=== PATIENT | female | born 1970 | race Caucasian/White ===

== ENCOUNTER 2020-05-18 10:15 | Inpatient (IN) ==
[2020-05-18 11:00] LABS: ABS Basophils 0.1 10^3/ul (0-0.2); ABS Eosinophils 0.2 10^3/ul (0-0.6); ABS Lymphocytes 2.1 10^3/ul (1.0-4.8); ABS Monocytes 0.8 10^3/ul (0-0.8); ABS Neutrophils 9.7 10^3/ul (1.5-7.7); Eosinophil % 1.2 %; Hematocrit 38 % (35-47); Hemoglobin 12.5 g/dL (12.0-16.0); Lymphocyte % 16.5 %; Mean Corpuscular HGB Conc 33 g/dL (31-36); Mean Corpuscular Hemoglobin 27 pg (27-31); Mean Corpuscular Volume 81 fL (80-97); Mean Platelet Volume 7.4 fL (7.4-10.4); Platelet Count 373 10^3/uL (150-450); Red Blood Count 4.67 10^6 /uL (3.70-4.87); Red Cell Distribution Width 16 % (10-15); White Blood Count 12.8 10^3/uL (3.5-10.8)
[2020-05-18 11:22] LABS: Albumin/Globulin Ratio 1.1 (1-3); BUN/Creatinine Ratio 16.1 (8-20); Calcium 9.5 mg/dL (8.6-10.3); EGFR African American 122.3 (>60); EGFR Non-African American 101.1 (>60); Globulin 3.6 g/dL (2-4); Potassium 3.9 mmol/L (3.5-5.0); Total Bilirubin 0.3 mg/dL (0.2-1.0); Total Protein 7.6 g/dL (6.4-8.9)
[2020-05-18] MEDS ORDERED: Iodixanol (CONTRAST) 320 MG/ML 100 ML SDV IV ONE (11:44)
[2020-05-18] MEDS ORDERED: Piperacillin/Tazobac ADVAN 3.375 GM in NS 0.9% 100 ml BAG 100 ML IVPB ONE (12:12)
[2020-05-18] MEDS ORDERED: Piperacillin/Tazobac 3.375 GM BAG ONE (12:21)
[2020-05-18] MEDS ORDERED: Al Hydrox/Mg Hydrox/Simet LIQ 30 ML UDC PO PRN (13:19)
[2020-05-18] MEDS ORDERED: Ondansetron 4 mg VIAL 2 MG/ML 2 ml VIAL IV PRN (13:19)
[2020-05-18] MEDS ORDERED: Morphine ORAL.SOLN 10 mg 2 mg/ml UDC 5 ml (10 mg) PO PRN (13:48)
[2020-05-18 13:55] LABS: C Reactive Protein 19.57 mg/L (<8.01)
[2020-05-18] MEDS ORDERED: Heparin 5000 UNITS/ML 1 mL VIAL SUBCUT SCH (14:00)
[2020-05-18] MEDS ORDERED: Zosyn per Pharmacy NOTE FOLLOW UP SCH (14:00)
[2020-05-18] MEDS ORDERED: Dextrose 50% Syringe 50 ml 25 GM/50 ML SYRINGE IV PUSH PRN (14:17)
[2020-05-18] MEDS ORDERED: Nicotine GUM 4MG FRUIT FLAVOR PO PRN (16:06)
[2020-05-18] MEDS ORDERED: PEG 3000 GI LAVAGE 1 GALLON PO ONE (16:06)
[2020-05-18] MEDS: HYDROmorphone 1 MG/1 ML SYRINGE IV SLOW PU PRN ×2 (16:26→20:50)
[2020-05-18] MEDS: ZOSYN 3.375 GM Q8H per EXTENDED INFUSION IV SCH (16:27)
[2020-05-18] MEDS: Nicotine PATCH 21 MG/24 HR PATCH TRANSDERM SCH (16:42)
[2020-05-18 18:17] LABS: Erythrocyte Sed Rate 47 mm/Hr (0-29)
[2020-05-18] MEDS: Heparin 5000 UNITS/ML 1 mL VIAL SUBCUT SCH (20:59)
[2020-05-19] MEDS: ZOSYN 3.375 GM Q8H per EXTENDED INFUSION IV SCH ×3 (00:25→17:46)
[2020-05-19] MEDS: HYDROmorphone 1 MG/1 ML SYRINGE IV SLOW PU PRN ×3 (03:59→12:50)
[2020-05-19] MEDS: Heparin 5000 UNITS/ML 1 mL VIAL SUBCUT SCH ×2 (05:17→14:32)
[2020-05-19 06:50] LABS: ABS Basophils 0.1 10^3/ul (0-0.2); ABS Eosinophils 0.3 10^3/ul (0-0.6); ABS Lymphocytes 2.4 10^3/ul (1.0-4.8); ABS Monocytes 0.8 10^3/ul (0-0.8); ABS Neutrophils 9.4 10^3/ul (1.5-7.7); Eosinophil % 2.4 %; Hematocrit 36 % (35-47); Hemoglobin 12.2 g/dL (12.0-16.0); Lymphocyte % 18.5 %; Mean Corpuscular HGB Conc 34 g/dL (31-36); Mean Corpuscular Hemoglobin 27 pg (27-31); Mean Corpuscular Volume 80 fL (80-97); Mean Platelet Volume 7.5 fL (7.4-10.4); Nucleated Red Blood Cells % 0.1; Platelet Count 355 10^3/uL (150-450); Red Blood Count 4.53 10^6 /uL (3.70-4.87); Red Cell Distribution Width 16 % (10-15)
[2020-05-19 07:07] LABS: BUN/Creatinine Ratio 17.2 (8-20); Calcium 9.1 mg/dL (8.6-10.3); EGFR African American 117.9 (>60); EGFR Non-African American 97.4 (>60); Potassium 3.7 mmol/L (3.5-5.0)
[2020-05-19] MEDS: Nicotine PATCH 21 MG/24 HR PATCH TRANSDERM SCH (08:21)
[2020-05-19] MEDS ORDERED: diPHENhydraMINE 25 mg TAB PO PRN (10:22)
[2020-05-19] MEDS ORDERED: NS 0.9% 1000 ml BAG 1,000 ML IV SCH ×2 (12:30→18:30)
[2020-05-19 13:23] LABS: Chlamydia trachomatis NAA Negative (Negative); Neisseria gonorrhoeae (GC) NAA Negative (Negative)
[2020-05-19] MEDS ORDERED: Midazolam 10 mg/10 ml VIAL 1 mg/ml 10 ml VIAL (10 mg) ONE (15:19)
[2020-05-19] MEDS ORDERED: fentaNYL 100 mcg/2 ml 50 MCG/ML VIAL ONE ×2 (15:19→22:30)
[2020-05-19] MEDS ORDERED: Levalbuterol 0.63MG/3ML NEB UNIT OF USE INH ONE ×2 (18:30→18:33)
[2020-05-19] MEDS ORDERED: diPHENhydraMINE IV 50 MG/ML 1 ml VIAL (BENADRYL) SLOW PUSH ONE (18:40)
[2020-05-19] MEDS ORDERED: diPHENhydraMINE IV 50 MG/ML 1 ml VIAL (BENADRYL) ONE (18:43)
[2020-05-19] MEDS ORDERED: Midazolam 5 mg/5 ml VIAL 1 mg/ml 5 ml VIAL (5 mg) ONE (18:48)
[2020-05-19] MEDS ORDERED: fentaNYL 250 mcg/5 ml 50 MCG/ML 5 ml VIAL (250 MCG) ONE ×2 (18:48→20:53)
[2020-05-19] MEDS ORDERED: Acetaminophen IV 1 GM/100ML 100 ML ONE (18:49)
[2020-05-19] MEDS ORDERED: Succinylcholine 200 mg VIAL 20 mg/ml 10 ml VIAL (200 mg) ONE (18:49)
[2020-05-19] MEDS ORDERED: EPHEDrine (Pressors) 50 MG/ML VIAL ONE (18:49)
[2020-05-19] MEDS ORDERED: Metoclopramide 5 MG/ML VIAL (10 mg) ONE (18:49)
[2020-05-19] MEDS ORDERED: Phenylephrine 40 mcg/mL 10mL (400mcg) SYRINGE ONE ×2 (18:49→20:10)
[2020-05-19] MEDS ORDERED: Sodium Chloride 0.9% 10 ML ONE (18:49)
[2020-05-19] MEDS ORDERED: Propofol 10 MG/ML 20 ML BTL ONE (18:49)
[2020-05-19] MEDS ORDERED: Ondansetron 4 mg VIAL 2 MG/ML 2 ml VIAL ONE (18:49)
[2020-05-19] MEDS ORDERED: Lidocaine 2% PF 5 ML VIAL ONE (18:49)
[2020-05-19] MEDS ORDERED: Rocuronium 50 mg VIAL 10 mg/ml 5 ml VIAL (50 mg) ONE ×2 (18:55→20:35)
[2020-05-19] MEDS ORDERED: ceFOXitin 2 GM IVPREMIX 2 GM/50 ML BAG ONE (19:03)
[2020-05-19] MEDS ORDERED: Ondansetron 4 mg VIAL 2 MG/ML 2 ml VIAL IV PRN (20:01)
[2020-05-19] MEDS ORDERED: Naloxone 0.4 mg VIAL 0.4 mg/ml 1 ml VIAL IV PRN (20:01)
[2020-05-19] MEDS ORDERED: HYDROmorphone 1 MG/1 ML SYRINGE ONE (22:14)
[2020-05-19] MEDS: HYDROmorphone 1 MG/1 ML SYRINGE IV PRN ×5 (22:18→23:25)
[2020-05-19] MEDS: fentaNYL 100 mcg/2 ml 50 MCG/ML VIAL IV PRN ×2 (22:32→23:13)
[2020-05-20] MEDS: Morphine PCA ADULT 5 MG/ML 30 ML PCA SCH (00:32)
[2020-05-20] MEDS: Lactated Ringers 1000 ml BAG 1,000 ML IV SCH ×4 (00:34→20:45)
[2020-05-20] MEDS: Heparin 5000 UNITS/ML 1 mL VIAL SUBCUT SCH ×4 (01:32→22:51)
[2020-05-20] MEDS ORDERED: Lactated Ringers 1000 ml BAG 1,000 ML IV PRN (03:57)
[2020-05-20] MEDS: ceFOXitin 2 GM IVPREMIX 2 GM/50 ML BAG IVPB SCH ×3 (04:34→20:28)
[2020-05-20] MEDS: diPHENhydraMINE IV 50 MG/ML 1 ml VIAL (BENADRYL) IV PRN ×3 (04:35→18:08)
[2020-05-20 06:38] LABS: ABS Basophils 0.1 10^3/ul (0-0.2); ABS Eosinophils 0.1 10^3/ul (0-0.6); ABS Lymphocytes 1.6 10^3/ul (1.0-4.8); ABS Neutrophils 12.2 10^3/ul (1.5-7.7); Eosinophil % 0.9 %; Hematocrit 36 % (35-47); Hemoglobin 11.9 g/dL (12.0-16.0); Lymphocyte % 10.5 %; Mean Corpuscular HGB Conc 33 g/dL (31-36); Mean Corpuscular Hemoglobin 27 pg (27-31); Mean Corpuscular Volume 82 fL (80-97); Platelet Count 305 10^3/uL (150-450); Red Blood Count 4.42 10^6 /uL (3.70-4.87); Red Cell Distribution Width 16 % (10-15); White Blood Count 14.9 10^3/uL (3.5-10.8)
[2020-05-20 06:42] LABS: Calcium 8.4 mg/dL (8.6-10.3); Potassium 4.2 mmol/L (3.5-5.0)
[2020-05-20 06:48] LABS: BUN/Creatinine Ratio 17.5 (8-20); EGFR African American 120.1 (>60); EGFR Non-African American 99.2 (>60)
[2020-05-20] MEDS: Nicotine PATCH 21 MG/24 HR PATCH TRANSDERM SCH (09:45)
[2020-05-20] MEDS: Nystatin TOP POWDER 15 GM BTL TOPICAL SCH ×2 (16:44→22:21)
[2020-05-20 20:48] LABS: ABS Basophils 0.1 10^3/ul (0-0.2); ABS Eosinophils 0.3 10^3/ul (0-0.6); ABS Lymphocytes 2.7 10^3/ul (1.0-4.8); ABS Monocytes 1.3 10^3/ul (0-0.8); ABS Neutrophils 11.6 10^3/ul (1.5-7.7); Eosinophil % 1.7 %; Hematocrit 33 % (35-47); Hemoglobin 11.2 g/dL (12.0-16.0); Lymphocyte % 16.7 %; Mean Corpuscular HGB Conc 34 g/dL (31-36); Mean Corpuscular Hemoglobin 27 pg (27-31); Mean Corpuscular Volume 81 fL (80-97); Mean Platelet Volume 7.2 fL (7.4-10.4); Platelet Count 322 10^3/uL (150-450); Red Blood Count 4.09 10^6 /uL (3.70-4.87); Red Cell Distribution Width 16 % (10-15); White Blood Count 15.9 10^3/uL (3.5-10.8)
[2020-05-20] MEDS ORDERED: Lactated Ringers 1000 ml BAG 1,000 ML IV ONE (21:00)
[2020-05-20 21:10] LABS: BUN/Creatinine Ratio 12.6 (8-20); Calcium 8.5 mg/dL (8.6-10.3); EGFR African American 82.7 (>60); EGFR Non-African American 68.4 (>60); Potassium 3.8 mmol/L (3.5-5.0)
[2020-05-21] MEDS: ceFOXitin 2 GM IVPREMIX 2 GM/50 ML BAG IVPB SCH (03:35)
[2020-05-21 03:47] LABS: Urine Appearance Clear; Urine Bilirubin Negative (Negative); Urine Blood Negative (Negative); Urine Color Yellow; Urine Glucose Negative (Negative); Urine Ketones Negative (Negative); Urine Nitrite Negative (Negative); Urine Protein Negative (Negative); Urine Specific Gravity 1.009 (1.010-1.030); Urine Urobilinogen Negative (Negative)
[2020-05-21] MEDS: diPHENhydraMINE IV 50 MG/ML 1 ml VIAL (BENADRYL) IV PRN (03:59)
[2020-05-21] MEDS: Lactated Ringers 1000 ml BAG 1,000 ML IV SCH ×2 (04:06→10:42)
[2020-05-21] MEDS: Meropenem 1 GM PREMIX(*) 1 GM/50 ML BAG IV SCH ×2 (04:42→12:54)
[2020-05-21 05:06] LABS: ABS Basophils 0.1 10^3/ul (0-0.2); ABS Eosinophils 0.3 10^3/ul (0-0.6); ABS Lymphocytes 1.5 10^3/ul (1.0-4.8); ABS Monocytes 1.1 10^3/ul (0-0.8); ABS Neutrophils 10.6 10^3/ul (1.5-7.7); Eosinophil % 1.9 %; Hematocrit 29 % (35-47); Hemoglobin 9.6 g/dL (12.0-16.0); Lymphocyte % 11.4 %; Mean Corpuscular HGB Conc 33 g/dL (31-36); Mean Corpuscular Hemoglobin 27 pg (27-31); Mean Corpuscular Volume 81 fL (80-97); Mean Platelet Volume 7.8 fL (7.4-10.4); Platelet Count 255 10^3/uL (150-450); Red Blood Count 3.57 10^6 /uL (3.70-4.87); Red Cell Distribution Width 16 % (10-15); White Blood Count 13.5 10^3/uL (3.5-10.8)
[2020-05-21 05:19] LABS: BUN/Creatinine Ratio 12.5 (8-20); Calcium 8.1 mg/dL (8.6-10.3); EGFR African American 102.9 (>60); EGFR Non-African American 85.1 (>60); Potassium 3.8 mmol/L (3.5-5.0)
[2020-05-21] MEDS: Heparin 5000 UNITS/ML 1 mL VIAL SUBCUT SCH ×3 (05:51→21:12)
[2020-05-21] MEDS: Nicotine PATCH 21 MG/24 HR PATCH TRANSDERM SCH (09:42)
[2020-05-21] MEDS: Nystatin TOP POWDER 15 GM BTL TOPICAL SCH ×3 (09:43→21:11)
[2020-05-21] MEDS: Morphine PCA ADULT 5 MG/ML 30 ML PCA SCH (10:52)
[2020-05-21] MEDS ORDERED: Zosyn per Pharmacy NOTE FOLLOW UP SCH (16:00)
[2020-05-21] MEDS: NS 0.9% 1000 ml BAG 1,000 ML IV SCH (17:14)
[2020-05-21] MEDS ORDERED: Piperacillin/Tazobac ADVAN 3.375 GM in NS 0.9% 100 ml BAG 100 ML IVPB ONE (21:00)
[2020-05-22] MEDS: ZOSYN 3.375 GM Q8H per EXTENDED INFUSION IV SCH ×3 (02:23→18:14)
[2020-05-22 04:25] LABS: ABS Basophils 0.1 10^3/ul (0-0.2); ABS Eosinophils 0.3 10^3/ul (0-0.6); ABS Lymphocytes 1.8 10^3/ul (1.0-4.8); ABS Monocytes 0.9 10^3/ul (0-0.8); ABS Neutrophils 7.8 10^3/ul (1.5-7.7); Eosinophil % 2.9 %; Hematocrit 28 % (35-47); Hemoglobin 9.2 g/dL (12.0-16.0); Lymphocyte % 16.4 %; Mean Corpuscular HGB Conc 33 g/dL (31-36); Mean Corpuscular Hemoglobin 27 pg (27-31); Mean Corpuscular Volume 82 fL (80-97); Platelet Count 271 10^3/uL (150-450); Red Blood Count 3.37 10^6 /uL (3.70-4.87); Red Cell Distribution Width 15 % (10-15); White Blood Count 10.8 10^3/uL (3.5-10.8)
[2020-05-22 04:57] LABS: Urine Appearance Clear; Urine Bilirubin Negative (Negative); Urine Blood Negative (Negative); Urine Color Yellow; Urine Glucose Negative (Negative); Urine Ketones 2+ (Negative); Urine Nitrite Negative (Negative); Urine Protein Negative (Negative); Urine Specific Gravity 1.021 (1.010-1.030); Urine Urobilinogen Negative (Negative)
[2020-05-22 05:02] LABS: Albumin 2.9 g/dL (3.2-5.2); BUN/Creatinine Ratio 10.8 (8-20); C Reactive Protein 192.98 mg/L (<8.01); Calcium 8.3 mg/dL (8.6-10.3); EGFR African American 115.8 (>60); EGFR Non-African American 95.7 (>60); Globulin 2.8 g/dL (2-4); Magnesium 1.6 mg/dL (1.9-2.7); Phosphorus 2.5 mg/dL (2.5-5.0); Potassium 3.7 mmol/L (3.5-5.0); Total Bilirubin 0.4 mg/dL (0.2-1.0); Total Protein 5.7 g/dL (6.4-8.9)
[2020-05-22] MEDS: Heparin 5000 UNITS/ML 1 mL VIAL SUBCUT SCH ×3 (06:03→21:23)
[2020-05-22] MEDS ORDERED: Iodixanol (CONTRAST) 320 MG/ML 100 ML SDV IV ONE (09:12)
[2020-05-22] MEDS: NS 0.9% 1000 ml BAG 1,000 ML IV SCH (10:12)
[2020-05-22] MEDS: Nicotine PATCH 21 MG/24 HR PATCH TRANSDERM SCH (10:15)
[2020-05-22] MEDS: Nystatin TOP POWDER 15 GM BTL TOPICAL SCH ×3 (12:29→21:22)
[2020-05-22] MEDS ORDERED: Magnesium Sulfate 2 gm BAG 2 GM/50 ML BAG IVPB ONE (15:53)
[2020-05-22] MEDS: diPHENhydraMINE IV 50 MG/ML 1 ml VIAL (BENADRYL) IV PRN (18:19)
[2020-05-23] MEDS: ZOSYN 3.375 GM Q8H per EXTENDED INFUSION IV SCH ×3 (01:53→17:41)
[2020-05-23 04:47] LABS: ABS Eosinophils 0.4 10^3/ul (0-0.6); ABS Lymphocytes 1.1 10^3/ul (1.0-4.8); ABS Monocytes 0.8 10^3/ul (0-0.8); ABS Neutrophils 5.6 10^3/ul (1.5-7.7); Eosinophil % 4.8 %; Hematocrit 25 % (35-47); Hemoglobin 8.3 g/dL (12.0-16.0); Lymphocyte % 14.4 %; Mean Corpuscular HGB Conc 33 g/dL (31-36); Mean Corpuscular Hemoglobin 27 pg (27-31); Mean Corpuscular Volume 82 fL (80-97); Mean Platelet Volume 7.4 fL (7.4-10.4); Platelet Count 268 10^3/uL (150-450); Red Blood Count 3.08 10^6 /uL (3.70-4.87); Red Cell Distribution Width 16 % (10-15); White Blood Count 7.9 10^3/uL (3.5-10.8)
[2020-05-23 04:58] LABS: EGFR African American 156.8 (>60); EGFR Non-African American 129.6 (>60); Magnesium 1.8 mg/dL (1.9-2.7); Potassium 3.7 mmol/L (3.5-5.0)
[2020-05-23] MEDS: Heparin 5000 UNITS/ML 1 mL VIAL SUBCUT SCH ×3 (05:28→22:25)
[2020-05-23] MEDS ORDERED: Magnesium Sulfate IV 1GM/100ML 1 GM/100 ML BAG IV ONE (09:00)
[2020-05-23] MEDS: Nicotine PATCH 21 MG/24 HR PATCH TRANSDERM SCH (09:13)
[2020-05-23] MEDS: Nystatin TOP POWDER 15 GM BTL TOPICAL SCH ×3 (09:14→21:32)
[2020-05-23] MEDS: NS 0.9% 1000 ml BAG 1,000 ML IV SCH ×2 (10:10→22:33)
[2020-05-23] MEDS: diPHENhydraMINE IV 50 MG/ML 1 ml VIAL (BENADRYL) IV PRN (13:45)
[2020-05-23] MEDS ORDERED: Morphine 2 MG/ML SYRINGE IV PRN (16:08)
[2020-05-23] MEDS: oxyCODONE/Acetamin 5/325 mg TAB PO PRN (21:13)
[2020-05-24] MEDS: ZOSYN 3.375 GM Q8H per EXTENDED INFUSION IV SCH ×3 (01:30→17:43)
[2020-05-24] MEDS: oxyCODONE/Acetamin 5/325 mg TAB PO PRN ×3 (03:01→19:31)
[2020-05-24] MEDS: Heparin 5000 UNITS/ML 1 mL VIAL SUBCUT SCH ×3 (05:46→21:42)
[2020-05-24 07:27] LABS: BUN/Creatinine Ratio 7.8 (8-20); Calcium 8.2 mg/dL (8.6-10.3); EGFR African American 117.9 (>60); EGFR Non-African American 97.4 (>60); Magnesium 1.7 mg/dL (1.9-2.7); Potassium 3.8 mmol/L (3.5-5.0)
[2020-05-24] MEDS ORDERED: Magnesium Sulfate 2 gm BAG 2 GM/50 ML BAG IVPB ONE (08:37)
[2020-05-24] MEDS: Nicotine PATCH 21 MG/24 HR PATCH TRANSDERM SCH (09:33)
[2020-05-24] MEDS: Nystatin TOP POWDER 15 GM BTL TOPICAL SCH ×3 (09:33→21:40)
[2020-05-24] MEDS: NS 0.9% 1000 ml BAG 1,000 ML IV SCH (12:00)
[2020-05-25] MEDS: ZOSYN 3.375 GM Q8H per EXTENDED INFUSION IV SCH ×2 (01:40→14:37)
[2020-05-25] MEDS: NS 0.9% 1000 ml BAG 1,000 ML IV SCH (01:40)
[2020-05-25] MEDS: oxyCODONE/Acetamin 5/325 mg TAB PO PRN ×2 (04:09→11:01)
[2020-05-25] MEDS: Heparin 5000 UNITS/ML 1 mL VIAL SUBCUT SCH (06:22)
[2020-05-25 08:41] LABS: Hematocrit 28 % (35-47); Hemoglobin 9.2 g/dL (12.0-16.0); Mean Corpuscular HGB Conc 33 g/dL (31-36); Mean Corpuscular Hemoglobin 27 pg (27-31); Mean Corpuscular Volume 82 fL (80-97); Mean Platelet Volume 7.5 fL (7.4-10.4); Platelet Count 298 10^3/uL (150-450); Red Blood Count 3.42 10^6 /uL (3.70-4.87); Red Cell Distribution Width 16 % (10-15)
[2020-05-25 08:59] LABS: BUN/Creatinine Ratio 11.3 (8-20); EGFR African American 122.3 (>60); EGFR Non-African American 101.1 (>60); Magnesium 1.8 mg/dL (1.9-2.7); Potassium 3.7 mmol/L (3.5-5.0)
[2020-05-25] MEDS ORDERED: Magnesium Sulfate 2 gm BAG 2 GM/50 ML BAG IVPB ONE (09:13)
[2020-05-25 09:15] LABS: C Reactive Protein 88.68 mg/L (<8.01)
[2020-05-25] MEDS: Nicotine PATCH 21 MG/24 HR PATCH TRANSDERM SCH (10:05)
[2020-05-25] MEDS: Nystatin TOP POWDER 15 GM BTL TOPICAL SCH (10:07)
[2020-05-25 11:21] VITALS: BP 145/79
== END 2020-05-25 14:40 | disposition home health service (06) | DRG 329 ==
LOC: ED 10:15 → MED 10:15 → SSU 05-20 00:13
PROVIDERS: ADMIT Internal Medicine; ATTEND Internal Medicine

== ENCOUNTER 2020-12-08 10:15 | Inpatient (IN) ==
[~2020-12-08 10:15] MED LIST: Buffered Lidocaine 1% SYRIN 1 ml INTRADERM ONE; Ertapenem 1 GM in NS 0.9% 50 ML BAG IVPB SCH; Lactated Ringers 1000 ml BAG 1,000 ML IV SCH
[2020-12-08] MEDS ORDERED: Heparin 5000 UNITS/ML 1 mL VIAL ONE (12:49)
[2020-12-08] MEDS ORDERED: Rocuronium 50 mg VIAL 10 mg/ml 5 ml VIAL (50 mg) ONE ×4 (14:01→17:46)
[2020-12-08] MEDS ORDERED: fentaNYL 100 mcg/2 ml 50 MCG/ML VIAL ONE ×2 (14:02→20:24)
[2020-12-08] MEDS ORDERED: Midazolam 2 mg/2 ml VIAL 1 mg/ml 2 ml VIAL (2 mg) ONE (14:02)
[2020-12-08] MEDS ORDERED: Ketamine HCL 50 mg/ml 10 ml VIAL (500 MG) ONE (14:02)
[2020-12-08] MEDS ORDERED: Lidocaine 2% PF 5 ML VIAL ONE ×2 (14:03→16:35)
[2020-12-08] MEDS ORDERED: Ondansetron 4 mg VIAL 2 MG/ML 2 ml VIAL ONE ×2 (14:03→20:09)
[2020-12-08] MEDS ORDERED: Glycopyrrolate IV 0.2 MG/ML 1 ML VIAL ONE (14:03)
[2020-12-08] MEDS ORDERED: Propofol 10 MG/ML 20 ML BTL ONE ×2 (14:03→16:34)
[2020-12-08] MEDS ORDERED: Dexamethasone IV 4 MG/ML VIAL 1 ml VIAL ONE (14:03)
[2020-12-08 14:08] LABS: ABS Basophils 0.1 10^3/ul (0-0.2); ABS Eosinophils 0.2 10^3/ul (0-0.6); ABS Lymphocytes 2.8 10^3/ul (1.0-4.8); ABS Monocytes 0.9 10^3/ul (0-0.8); ABS Neutrophils 4.9 10^3/ul (1.5-7.7); Eosinophil % 1.8 %; Hematocrit 37 % (35-47); Hemoglobin 12.6 g/dL (12.0-16.0); Lymphocyte % 31.3 %; Mean Corpuscular HGB Conc 34 g/dL (31-36); Mean Corpuscular Hemoglobin 31 pg (27-31); Mean Corpuscular Volume 92 fL (80-97); Mean Platelet Volume 7.7 fL (7.4-10.4); Platelet Count 234 10^3/uL (150-450); Red Blood Count 4.03 10^6 /uL (3.70-4.87); Red Cell Distribution Width 18 % (10-15); White Blood Count 8.9 10^3/uL (3.5-10.8)
[2020-12-08 14:32] LABS: Albumin 4.1 g/dL (3.2-5.2); Albumin/Globulin Ratio 1.4 (1-3); BUN/Creatinine Ratio 12.3 (8-20); Calcium 9.2 mg/dL (8.6-10.3); EGFR African American 115.8 (>60); EGFR Non-African American 95.7 (>60); Potassium 3.9 mmol/L (3.5-5.0); Total Bilirubin 0.4 mg/dL (0.2-1.0); Total Protein 7.1 g/dL (6.4-8.9)
[2020-12-08] MEDS ORDERED: diPHENhydraMINE IV 50 MG/ML 1 ml VIAL (BENADRYL) IV PRN (14:45)
[2020-12-08] MEDS ORDERED: Naloxone 0.4 mg VIAL 0.4 mg/ml 1 ml VIAL IV PRN (14:45)
[2020-12-08] MEDS ORDERED: Prochlorperazine 5 mg/ml 2 ml VIAL (10 mg) IV PRN (14:45)
[2020-12-08] MEDS ORDERED: Bupivacaine 0.5% SDV PF 30ML VIAL ONE (15:21)
[2020-12-08] MEDS ORDERED: Phenylephrine IV 10 MG/ML 1 ml VIAL ONE (16:48)
[2020-12-08] MEDS ORDERED: Morphine 10 MG/ML VIAL (1 ml) ONE (17:14)
[2020-12-08] MEDS ORDERED: Naloxone 0.4 mg VIAL 0.4 mg/ml 1 ml VIAL IV PUSH PRN (20:51)
[2020-12-08] MEDS ORDERED: Ondansetron 4 mg VIAL 2 MG/ML 2 ml VIAL IV PRN (20:53)
[2020-12-08] MEDS ORDERED: Dextrose 50% Syringe 50 ml 25 GM/50 ML SYRINGE IV PUSH PRN (20:55)
[2020-12-08] MEDS ORDERED: HYDROmorphone PCA 20 MG/20 ML PCA.SYRING PCA SCH (21:00)
[2020-12-08] MEDS: HYDROmorphone 1 MG/1 ML SYRINGE IV PRN ×2 (21:26→21:36)
[2020-12-08] MEDS ORDERED: HYDROmorphone 1 MG/1 ML SYRINGE ONE ×3 (21:26→22:06)
[2020-12-08] MEDS: Lactated Ringers 1000 ml BAG 1,000 ML IV SCH (21:44)
[2020-12-08] MEDS: HYDROmorphone 1 MG/1 ML SYRINGE IV SLOW PU PRN ×4 (21:49→22:27)
[2020-12-08] MEDS ORDERED: diPHENhydraMINE IV 50 MG/ML 1 ml VIAL (BENADRYL) ONE (22:51)
[2020-12-09] MEDS: Heparin 5000 UNITS/ML 1 mL VIAL SUBCUT SCH ×3 (00:32→16:15)
[2020-12-09 07:02] LABS: ABS Lymphocytes 1.6 10^3/ul (1.0-4.8); ABS Monocytes 1.4 10^3/ul (0-0.8); ABS Neutrophils 14.2 10^3/ul (1.5-7.7); Hematocrit 32 % (35-47); Hemoglobin 10.6 g/dL (12.0-16.0); Lymphocyte % 9.3 %; Mean Corpuscular HGB Conc 33 g/dL (31-36); Mean Corpuscular Hemoglobin 31 pg (27-31); Mean Corpuscular Volume 93 fL (80-97); Platelet Count 243 10^3/uL (150-450); Red Blood Count 3.44 10^6 /uL (3.70-4.87); Red Cell Distribution Width 18 % (10-15); White Blood Count 17.2 10^3/uL (3.5-10.8)
[2020-12-09 07:24] LABS: BUN/Creatinine Ratio 14.9 (8-20); Calcium 8.8 mg/dL (8.6-10.3); EGFR African American 111.8 (>60); EGFR Non-African American 92.4 (>60); Potassium 4.2 mmol/L (3.5-5.0)
[2020-12-09] MEDS: Pantoprazole VIAL 40 MG VIAL IV SCH (07:39)
[2020-12-09] MEDS: Lactated Ringers 1000 ml BAG 1,000 ML IV SCH ×2 (07:43→10:48)
[2020-12-09] MEDS ORDERED: HYDROmorphone 0.5 MG/0.5 ML SYRINGE IV SLOW PU PRN (09:12)
[2020-12-09] MEDS ORDERED: Morphine ORAL.SOLN 10 mg 2 mg/ml UDC 5 ml (10 mg) PO PRN (10:06)
[2020-12-09] MEDS: oxyCODONE/Acetamin 5/325 mg TAB PO PRN ×3 (10:50→21:01)
[2020-12-09] MEDS: Nicotine PATCH 14 MG/24 HR PATCH TRANSDERM SCH (14:07)
[2020-12-09 17:21] LABS: Urine Appearance Clear; Urine Bilirubin Negative (Negative); Urine Blood Negative (Negative); Urine Color Yellow; Urine Glucose Negative (Negative); Urine Ketones Negative (Negative); Urine Nitrite Negative (Negative); Urine Protein Negative (Negative); Urine Specific Gravity 1.012 (1.010-1.030); Urine Urobilinogen Negative (Negative)
[2020-12-10] MEDS: Lactated Ringers 1000 ml BAG 1,000 ML IV SCH (00:33)
[2020-12-10] MEDS: Heparin 5000 UNITS/ML 1 mL VIAL SUBCUT SCH ×2 (00:33→07:29)
[2020-12-10 06:27] LABS: ABS Basophils 0.1 10^3/ul (0-0.2); ABS Eosinophils 0.2 10^3/ul (0-0.6); ABS Lymphocytes 2.1 10^3/ul (1.0-4.8); ABS Neutrophils 5.4 10^3/ul (1.5-7.7); Eosinophil % 2.4 %; Hematocrit 29 % (35-47); Hemoglobin 9.7 g/dL (12.0-16.0); Lymphocyte % 24.1 %; Mean Corpuscular HGB Conc 34 g/dL (31-36); Mean Corpuscular Hemoglobin 32 pg (27-31); Mean Corpuscular Volume 93 fL (80-97); Mean Platelet Volume 8.2 fL (7.4-10.4); Platelet Count 196 10^3/uL (150-450); Red Blood Count 3.07 10^6 /uL (3.70-4.87); Red Cell Distribution Width 18 % (10-15); White Blood Count 8.9 10^3/uL (3.5-10.8)
[2020-12-10] MEDS: Nicotine PATCH 14 MG/24 HR PATCH TRANSDERM SCH (07:35)
[2020-12-10] MEDS: Pantoprazole VIAL 40 MG VIAL IV SCH (07:37)
[2020-12-10 07:53] VITALS: BP 137/67
[2020-12-10] MEDS: oxyCODONE/Acetamin 5/325 mg TAB PO PRN (11:09)
== END 2020-12-10 11:20 | disposition home or self-care (01) | DRG 221 ==
LOC: AA 12:12 → SSU 23:30
PROVIDERS: ADMIT Surgery; ATTEND Surgery

== ENCOUNTER 2024-05-07 19:29 | Inpatient (IN) ==
[2024-05-07] MEDS ORDERED: Heparin - STEMI 5,000 UNITS/ML 1 ml VIAL IV ONE (19:51)
[2024-05-07] MEDS ORDERED: Aspirin EC 325 mg TAB.EC ONE (19:52)
[2024-05-07] MEDS ORDERED: methylPREDNISolone SOD SUCC 125 mg 2 ML VIAL ONE (19:57)
[2024-05-07] MEDS: Heparin - STEMI 5,000 UNITS/ML 1 ml VIAL IV ONE (19:58)
[2024-05-07] MEDS ORDERED: Nitro 2% OINT (Nitroglycerin) 1 INCH/PAK ONE (20:02)
[2024-05-07] MEDS: Nitro 2% OINT (Nitroglycerin) 1 INCH/PAK TOPICAL ONE (20:06)
[2024-05-07 20:07] LABS: ABS Basophils 0.1 10^3/uL (0.0-0.1); ABS Eosinophils 0.1 10^3/uL (0.0-0.5); ABS Lymphocytes 4.7 10^3/uL (1.0-4.8); ABS Monocytes 1.5 10^3/uL (0.0-0.9); ABS Neutrophils 11.9 10^3/uL (1.5-7.6); ABS Nucleated RBC 0.01 10^3/ul; Eosinophil % 0.4 %; Lymphocyte % 25.7 %; Mean Corpuscular Hemoglobin 25.1 pg (27-33); Mean Corpuscular Hgb Conc 31.8 g/dL (31-36); Mean Corpuscular Volume 79.1 fL (80-97); Mean Platelet Volume 8.4 fL (7.5-11.2); Nucleated Red Blood Cells % 0.1 %/100WBC (0.0-0.8); Platelet Count 325 10^3/uL (150-450); Red Blood Count 5.18 10^6/uL (3.63-4.92); White Blood Count 18.3 10^3/uL (3.8-11.8)
[2024-05-07] MEDS: methylPREDNISolone SOD SUCC 125 mg 2 ML VIAL IV ONE (20:12)
[2024-05-07 20:21] LABS: INR 1.02 (0.83-1.13)
[2024-05-07] MEDS ORDERED: Heparin 1,000 UNIT/ML 10 ml (10,000 UNITS) CATHLAB/DIALYSIS ONE (20:23)
[2024-05-07] MEDS ORDERED: Heparin 2 UNITS/ML 1000 mls 2,000 ML IV ONE (20:23)
[2024-05-07] MEDS ORDERED: nitroGLYCERIN DRIP 25,000 MCG/250 ML BTL ONE (20:23)
[2024-05-07] MEDS ORDERED: fentaNYL 100 mcg/2 ml 50 MCG/ML VIAL ONE ×2 (20:23→20:27)
[2024-05-07] MEDS ORDERED: Midazolam 5 mg/5 ml VIAL 1 mg/ml 5 ml VIAL (5 mg) ONE ×2 (20:23→20:26)
[2024-05-07] MEDS ORDERED: Iohexol 350 (CONTRAST) 200 ML MDV IV ONE (20:24)
[2024-05-07] MEDS ORDERED: Lidocaine 1% MPF 5 ML VIAL ONE (20:24)
[2024-05-07] MEDS ORDERED: VERAPAMIL 2.5 MG/ML 2 ML VIAL ** 5 mg/2 ml ONE (20:27)
[2024-05-07 20:28] LABS: Albumin 4.6 g/dL (3.2-5.2); Albumin/Globulin Ratio 1.4 (1-3); Calcium 10.2 mg/dL (8.6-10.3); Creatinine, Serum 0.76 mg/dL (0.51-0.95); Globulin 3.3 g/dL (2-4); Total Bilirubin 0.4 mg/dL (0.2-1.0); Total Protein 7.9 g/dL (6.4-8.9); eGFR CKD-EPI 91.9 (>60)
[2024-05-07] MEDS ORDERED: Bivalirudin 250 MG VIAL ONE (20:53)
[2024-05-07] MEDS ORDERED: Furosemide 40 mg/4 ml IV VIAL ONE (21:53)
[2024-05-07] MEDS ORDERED: Dextrose 50% Syringe 50 ml 25 GM/50 ML SYRINGE IV PUSH PRN (23:15)
[2024-05-08] MEDS: NS 0.9% 1000 ml BAG 1,000 ML IV SCH (00:15)
[2024-05-08 05:39] LABS: ABS Monocytes 0.3 10^3/uL (0.0-0.9); ABS Neutrophils 14.8 10^3/uL (1.5-7.6); Hematocrit 37.9 % (35-45); Hemoglobin 12.5 g/dL (11.5-14.3); Lymphocyte % 6.5 %; Mean Corpuscular Hemoglobin 26.2 pg (27-33); Mean Corpuscular Hgb Conc 33.1 g/dL (31-36); Mean Platelet Volume 8.4 fL (7.5-11.2); Platelet Count 273 10^3/uL (150-450); Red Blood Count 4.79 10^6/uL (3.63-4.92); White Blood Count 16.2 10^3/uL (3.8-11.8)
[2024-05-08 06:10] LABS: Albumin 4.5 g/dL (3.2-5.2); Albumin/Globulin Ratio 1.6 (1-3); Calcium 9.6 mg/dL (8.6-10.3); Creatinine, Serum 0.76 mg/dL (0.51-0.95); Globulin 2.9 g/dL (2-4); HDL Cholesterol 47.8 mg/dL; Potassium 3.9 mmol/L (3.5-5.0); Total Bilirubin 0.5 mg/dL (0.2-1.0); Total Protein 7.4 g/dL (6.4-8.9); eGFR CKD-EPI 91.9 (>60)
[2024-05-08] MEDS: Midazolam 2 mg/2 ml VIAL 1 mg/ml 2 ml VIAL (2 mg) IV SLOW PU ONE (06:20)
[2024-05-08] MEDS: Heparin - STEMI 5,000 UNITS/ML 1 ml VIAL IV ONE (06:20)
[2024-05-08] MEDS: fentaNYL 100 mcg/2 ml 50 MCG/ML VIAL IV SLOW PU ONE (06:20)
[2024-05-08] MEDS: Morphine ORAL.SOLN 10 mg 2 mg/ml UDC 5 ml (10 mg) PO PRN (09:13)
[2024-05-08] MEDS: Sulfur Hexaflouride MICROSPHR 25 MG VIAL IV ONE (09:43)
[2024-05-08 10:11] LABS: Magnesium 1.6 mg/dL (1.9-2.7)
[2024-05-08] MEDS: Magnesium Sulf 4 GM/100 ML IV 4,000 MG/100 ML BAG IVPB ONE (11:54)
[2024-05-08] MEDS: Morphine 10 MG/ML VIAL (1 ml) IV PRN (14:26)
[2024-05-09] MEDS: Nicotine PATCH 21 MG/24 HR PATCH TRANSDERM SCH (09:03)
[2024-05-09 10:32] LABS: ABS Basophils 0.2 10^3/uL (0.0-0.1); ABS Eosinophils 0.1 10^3/uL (0.0-0.5); ABS Lymphocytes 4.2 10^3/uL (1.0-4.8); ABS Monocytes 1.4 10^3/uL (0.0-0.9); ABS Neutrophils 9.5 10^3/uL (1.5-7.6); ABS Nucleated RBC 0.01 10^3/ul; Eosinophil % 0.6 %; Hematocrit 37.6 % (35-45); Hemoglobin 11.8 g/dL (11.5-14.3); Lymphocyte % 27.3 %; Mean Corpuscular Hemoglobin 25.2 pg (27-33); Mean Corpuscular Hgb Conc 31.5 g/dL (31-36); Mean Corpuscular Volume 80.1 fL (80-97); Mean Platelet Volume 8.4 fL (7.5-11.2); Platelet Count 300 10^3/uL (150-450); Red Blood Count 4.69 10^6/uL (3.63-4.92); Red Cell Distribution Width 16.8 % (12-17); White Blood Count 15.3 10^3/uL (3.8-11.8)
[2024-05-09 11:16] LABS: Calcium 9.4 mg/dL (8.6-10.3); Creatinine, Serum 0.88 mg/dL (0.51-0.95); Magnesium 1.9 mg/dL (1.9-2.7); Potassium 3.9 mmol/L (3.5-5.0); eGFR CKD-EPI 77.1 (>60)
[2024-05-09 11:18] VITALS: BP 100/61
== END 2024-05-09 13:05 | disposition left against medical advice (07) | DRG 322 ==
LOC: ED 19:29 → CHICATH 20:55 → ICU 22:46